=== PATIENT | male | born 1960 | race Caucasian/White ===

== ENCOUNTER 2017-11-06 09:50 | Day surgery (SDC) | payer BC, OTHER ==
[2017-10-31 10:16] VITALS: BMI 28.5
[2017-11-06] MEDS ORDERED: PROPOFOL 20 ML ONE ×2 (10:44)
[2017-11-06 12:30] VITALS: BP 118/73; PULSE 65; TEMP 98
== END 2017-11-06 12:05 | disposition home or self-care (01) ==
LOC: FASU-ENDO 09:50
PROVIDERS: ATTEND Internal Medicine Gastroenterology
PROC: 0DJD8ZZ Inspection of Lower Intestinal Tract, Via Natural or Artificial Opening Endoscopic (ICD-10-PCS; principal; 2017-11-06 10:59)
DX: Z12.11 Encounter for screening for malignant neoplasm of colon (principal); K64.8 Other hemorrhoids